=== PATIENT | male | born 1990 | race Caucasian/White ===

== ENCOUNTER 2022-05-18 04:51 | Inpatient (IN) | payer BC, SELFPAY ==
[2022-05-18] VITALS (7 sets, daily range): BP systolic 126–148; BP diastolic 74–105; PULSE 87–105; RESP 18–20; TEMP 36.4–37.3; O2SAT 94–98; BMI 40.9
--- NOTE | ~2022-05-18 | CT_ITS ---
EXAMINATION: CT abdomen pelvis w con DATE: 05/18/2022 07:33 INDICATION: Lower abdominal pain. TECHNIQUE: Computed tomography (CT) of the abdomen and pelvis was performed with 100 mL Omnipaque 350 intravenous contrast. Automated exposure control and iterative reconstruction technique were employe d. The dose-length product was 1617.54 mGy-cm. COMPARISON: None. FINDINGS: The visualized portions of the lung bases demonstrate mild atelectasis on the right. A 3 mm nodule in right lower lobe is likely benign. A calcified left lung nodule is consistent with old gra nulomatous disease. No pleural effusion. The heart size is normal. No pericardial effusion. There is mild elevation of right hemidiaphragm. The liver, gallbladder, spleen, pancreas, adrenal glands, and kidneys are normal. There is a left inguinal hernia containing fat. There are scattered diverticula i n the colon. There is fat stranding around a diverticulum of sigmoid colon with scattered foci of clemente e intraperitoneal gas throughout the abdomen. The appendix is normal. There are no dilated loops of b owel. There is an umbilical hernia containing fat. There are no pathologically enlarged lymph nodes. There is mild thoracolumbar spondylosis. IMPRESSION: 1. Perforated sigmoid diverticulitis. No abscess. Reviewed, dictated and finalized at location A. WORKER
[2022-05-18 05:38] LABS: Add Urine Microscopic? NO; Appearance Urine Clear (Clear); Bilirubin Urine Negative (Negative); Blood Urine Negative (Negative); Color Urine Yellow (Yellow); Glucose Urine UA Negative (Negative); Ketones Urine Negative (Negative); Leukocyte Esterase Ur Negative LEU/UL (Negative); Nitrate Urine Negative (Negative); Protein Urine Negative (Negative); pH Urine 6.5 (5.0-9.0)
[2022-05-18 05:38] LABS: Basophils Absolute Auto 0.1 K/mm3 (0.0-0.1); Basophils Percent Auto 0.5 % (0.2-1.2); Eosinophils Percent Auto 0.2 % (0-4.4); Hematocrit 43.8 % (42.0-52.0); Hemoglobin 15.2 g/dL (14.0-18.0); Immature Granulocyte Absolute 0.05 K/mm3 (0.00-0.031); Immature Granulocyte Percent A 0.3 % (0-0.5); Lymphocytes Absolute Auto 1.32 K/mm3 (0.9-3.2); Lymphocytes Percent Auto 7.8 % (18.3-44.2); Mean Corpuscular HGB Conc 34.7 g/dl (32-36); Mean Corpuscular Hemoglobin 28.7 pg (26-34); Mean Corpuscular Volume 82.8 fl (80-100); Mean Platelet Volume 9.3 fl (7.4-10.4); Monocytes Absolute Auto 1.1 K/mm3 (0.1-0.6); Monocytes Percent Auto 6.8 % (2.6-8.5); Neutrophils Absolute Auto 14.3 K/mm3 (1.3-6.7); Neutrophils Percent Auto 84.4 % (45.5-73.1); Platelet Count Result 291 k/mm3 (150-375); Red Blood Count 5.29 M/mm3 (4.6-6.20); Red Cell Distribution Width 13.6 % (11.5-14.5); White Blood Count 16.9 K/mm3 (4.5-10.0)
[2022-05-18 05:44] LABS: Bacteria Urine Trace /hpf; Mucus Urine Few /lpf; WBC Urine 0-3 /hpf
[2022-05-18 05:49] LABS: Alanine Aminotransferase 50 U/L (6-50); Albumin Level 4.5 g/dL (3.5-5.1); Alkaline Phosphatase 153 U/L (38-126); Anion Gap 10 mmol/L (8-16); Aspartate Amino Transferase 40 U/L (17-59); Bilirubin,Total 2.1 mg/dL (0.2-1.3); Blood Urea Nitrogen 19 mg/dL (9-20); Calcium 9.1 mg/dL (8.4-10.2); Carbon Dioxide 23 mmol/L (22-30); Chloride 106 mmol/L (98-107); Estimated CRCL calculation 174 ml/min; Estimated Glomerular Filt Rate > 60; Glucose 126 mg/dL (65-110); Lipase 52 U/L (23-300); Potassium 3.6 mmol/L (3.4-5.0); Sodium 139 mmol/L (137-145)
--- NOTE | 2022-05-18 07:07 | ED.ABDPAIN ---
HPI - Abdominal Pain General Chief Complaint: Abdominal Pain Stated Complaint: Abdominal cramping x 12 hours Time Seen by Provider: 05/18/22 07:04 Source: patient Mode of arrival: ambulatory Limitations: no limitations History of Present Illness HPI narrative: Patient is a 31 yo male with a hx of diverticulitis presenting to the ER for evaluation of lower abdominal pain that began around 12 hours ago. Patient reports aching pain in the lower abdomen without radiation to the upper abdomen or flank. He denies associated fever, chills, nausea or vomiting. He has been able to tolerate oral intake. Patient reports history of diverticulitis which was treated with IV and outpatient oral antibiotics that did clear. Patient had a follow-up colonoscopy that showed no evidence of cancerous process. Patient denies any known history of irritable bowel disease. Patient denies diarrhea, constipation, hematochezia. Related Data Allergies Allergy/AdvReac Type Severity Reaction Status Date / Time amoxicillin [From Augmentin] Allergy Unknown Verified 05/18/22 04:53 cefaclor [From Ceclor] Allergy Unknown Verified 05/18/22 04:54 clavulanic acid Allergy Unknown Verified 05/18/22 04:53 [From Augmentin] Review of Systems Review of Systems: CONSTITUTIONAL: Denies fever, chills, or sweats. EYES: Denies visual changes, redness, or discharge. ENT: Denies rhinorrhea, congestion, sore throat, or otalgia. CARDIOVASCULAR: Denies chest pain, palpitations, or edema. RESPIRATORY: Denies cough or dyspnea. GASTROINTESTINAL: Reports abd pain in the lower abdomen, denies nausea, vomiting, diarrhea or constipation GENITOURINARY: Denies dysuria or hematuria. SKIN: Denies rash or itching. MUSCULOSKELETAL: Denies back pain, joint pain, or myalgia. NEUROLOGIC: Denies headache, numbness, or weakness. [facility] Past Medical History Medical History (Updated 05/18/22 @ 16:23 by Deric Dunlap MD) Diverticulitis Obesity with body mass index (BMI) of 35.0 to 39.9 without comorbidity Surgical History Surgical History S/P hernia surgery Social History Social History Smokeless tobacco user: chewing tobacco Alcohol intake: never Substance use: never Exam Narrative: GENERAL: Awake, alert, conversant HEAD: Normocephalic, atraumatic. EYES: PERRLA and EOMI. ENT: Nares clear, no rhinorrhea or epistaxis. Mucous membranes moist. NECK: Supple. CHEST: No respiratory distress, breathing even and non labored HEART: Tachycardic rate, sinus rhythm ABDOMEN:Non distended, tender in the lower abdomen without rebound, rigidity or guarding, no flank pain bilaterally EXTREMITIES: Normal range of motion. No edema. SKIN: Warm, dry, no rash. NEURO:No focal deficits. Alert and oriented x3 Course Vital Signs Vital signs: Vital Signs Temperature 36.8 C 05/18/22 05:09 Pulse Rate 105 H 05/18/22 05:09 Respiratory Rate 20 05/18/22 05:09 Blood Pressure 138/83 05/18/22 05:09 Pulse Oximetry 98 05/18/22 05:09 Oxygen Delivery Room Air 05/18/22 05:09 Temperature 37.0 C 05/18/22 17:22 Pulse Rate 100 05/18/22 17:22 Respiratory Rate 20 05/18/22 17:22 Blood Pressure 140/80 05/18/22 17:22 Pulse Oximetry 97 05/18/22 17:22 Oxygen Delivery Room Air 05/18/22 05:09 MDM - Abdominal Pain MDM Narrative Medical decision making narrative: Patient is a 31-year-old male presenting for evaluation of lower abdominal pain. At the time of initial assessment, patient is tachycardic, afebrile, no hypotension. Overall, he is well-appearing. He does have lower abdominal pain on palpation without rebound, rigidity or guarding. Laboratory results are notable for leukocytosis, lactic and blood cultures will be added to patient's work-up. He was ordered IV fluids, antiemetic and pain medication. CT imaging is notable for perforated sigmoid
[2022-05-18 08:46] LABS: Influenza A QL RT-PCR Negative (Negative); Influenza B QL RT-PCR Negative (Negative); SARS-CoV-2 RNA PCR Negative
[2022-05-18] MEDS: SODIUM CHLORIDE 0.9% IV 1,000 ML 999 ML IV CONT ×4 (09:36→17:53)
[2022-05-18] MEDS: MORPHINE SULFATE (*CRX) 4 MG/ML INJ IV PUSH ×3 (09:40→20:38)
[2022-05-18] MEDS: ONDANSETRON INJ 4 MG/2 ML VIAL IV PUSH (09:40)
[2022-05-18] MEDS: HYDROmorphone HCL INJ (*CRX) 1 MG/ML SYR 0.5 MG IV PUSH (12:18)
[2022-05-18 14:42] LABS: Lactic Acid Reflex 2.4 mmol/L (0.7-2.0)
--- NOTE | 2022-05-18 15:12 | PC.NURSE ---
patient alert and oriented at this time. advised to immediately notify chief writer if pain becomes worse or notices fever/chills. patient verbalized understanding stating that the pain is the same as it has been and vitals taken.
--- NOTE | 2022-05-18 15:32 | PC.NURSE ---
general surgeon here to assess patient at this time
--- NOTE | 2022-05-18 16:13 | PM.IMHP ---
H&P: HPI History of Present Illness Date/Time: 05/18/22 16:00 Chief Complaint: Worsening lower abdominal pain Narrative: The patient is a 31 y/o obese White male with a history of diverticulitis presenting to the ER for evaluation of lower abdominal pain that began around 7:00 p.m. 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 Patient reports aching pain in the lower abdomen without radiation to the upper abdomen or flank.? He denies associated fever, chills, nausea or vomiting.? He has been able to tolerate oral intake.? Patient reports history of diverticulitis which was treated with IV and outpatient oral antibiotics that did clear.? His 1st episode was in 2018. Patient had a follow-up colonoscopy After that improved in 2018 which showed no evidence of cancerous process but apparently some evidence for diverticuli.? Patient denies any known history of irritable bowel disease.? Patient denies diarrhea, constipation, hematochezia. he has had 2 episodes earlier this year 1 very early in May and a 2nd 1 more in July or August. He has seen both at the primary and a surgeon in [facility] regarding this. The patient had a workup in the emergency [place] [id number]. The rest of his labs were pretty normal. He also had a CT scan of the abdomen and pelvis which showed significant inflammation of and around the sigmoid colon with small bubbles of free air mainly in that area but also scattered in the mid and left abdomen. He was not exhibiting peritoneal signs in the ER. I reviewed the problem with him and explained that in this situation usually would treat with IV antibiotics and follow him. Since he is from [place], [place] he would prefer to be transferred back up to [facility] in [place] and Dr. Riley has called and he has been accepted as a patient. However, they are awaiting a bed and he is on a waiting list. Therefore, I was asked to see him and follow him in our emergency room until we find out if he is going to go. If unable to go he will continue get treated here on inpatient basis when we have a bed available. Review of Systems Review of Systems: All systems reviewed & are unremarkable except as noted in HPI and below (HPI) Constitutional: Constitutional: Reports as per HPI, Denies chills and Denies fever(s) Eyes: Eyes: Reports no additional eye complaints ENT: Reports Normal hearing present and Denies dizziness Cardiovascular: Cardiovascular: Reports no additional cardiovascular complaints, Denies chest pain and Denies irregular heart rhythm Respiratory: Respiratory: Reports no additional respiratory complaints Gastrointestinal: Gastrointestinal: Denies bloating Comments: History of 3 previous episodes of diverticulitis. The most recent tube being May the and then subsequently August of this year. Prior to his August episode he had had a 2nd colonoscopy which revealed apparently sigmoid diverticuli as far as I can tell from his description. He has had no polyps. Previously in 2018 he had his 1st episode of diverticulitis and 1 or 2 months after that had a colonoscopy by a Dr. Hobbs in [place], [place] he states that she had actually talked to him about possible elective surgery to remove the most affected the segment of his sigmoid colon. He had avoided doing this for now because he needed to obtain disability or short-term disability insurance through his [employer] company and was working on that. Genitourinary: Genitourinary: Denies hematuria Musculoskeletal: Musculoskeletal: Denies back pain Integumentary/Breasts: Skin/Breast: Reports system reviewed and no additional complaints, except as docu Neurologic: Reports Normal hearing present, Denies Abnormal speech present, Denies confusion and Denies dizziness Psychiatric: Psychiatric: Reports no additional psychiatric complaints and Denies confusion Endocrine: Endocrine: Re
[2022-05-18 17:27] LABS: Reflex Lactic Acid Yes or No Add Lactic
--- NOTE | 2022-05-18 17:43 | PC.NURSE ---
called bed coordinator sushant at [facility], there may be a possible bed open up their pending discharges. pt will go to a bed here but not admitted, upstairs for [facility],.[facility] will contact us when bed available.
--- NOTE | 2022-05-18 20:40 | PC.NURSE ---
TRANSPORT: [id number] called [facility] for ALS transport to [facility] in [place], [place] (ROOM 4419 - [phone]). Long distance trip horticultural services supervisor approved at 193. Earliest ETA for an ALS EMS transport would be on 05/21/22 at 0900, [facility] PERMITTING. DX: perforated diverticulitis. IVL-PRN MEDICATION
[2022-05-18] MEDS: SODIUM CHLORIDE 0.9% IV 1,000 ML 100 ML IV CONT (21:31)
--- NOTE | 2022-05-18 21:32 | PC.NURSE ---
[facility] in [place] aware patient not transferring tonight d/t unavailable transport [phone]
--- NOTE | 2022-05-18 21:38 | ADMGEN ---
This patient, Gary James, was admitted to [address] [place] [address] Room 310-01. Patient/family oriented to hospital policies and general routines including ID bracelet, bed and alarms, visiting hours, pain management, procedures, bathroom and other care routines, personal items, smoking policy, room service/diet, and visiting hours. Information on how to activate the Rapid Response Team has been discussed. Patient/Family are encouraged to report perceived risks to care and to ask questions if they do not understand what they are told or what they should do.
[2022-05-18] MEDS: LACTATED RINGERS 1,000 ML 125 ML IV CONT (22:59)
[2022-05-19] VITALS (7 sets, daily range): BP systolic 115–128; BP diastolic 64–77; PULSE 71–86; RESP 16–20; TEMP 36.3–37.1; O2SAT 96–99
[2022-05-19] MEDS: MORPHINE SULFATE (*CRX) 4 MG/ML INJ IV PUSH (02:49)
--- NOTE | 2022-05-19 03:52 | PC.NURSE ---
Talked to [facility] about pending transfer to their facility. Facility has to give up bed due to patient not being able to be transported to [facility] until Tuesday because of ambulance availability, but he is placed back on the waiting list and will continue to be called for updates on him. If transport can be arranged earlier than Tuesday, then give a call back to the [facility] at [phone].
[2022-05-19 06:57] LABS: Basophils Percent Auto 0.4 % (0.2-1.2); Eosinophils Absolute Auto 0.1 K/mm3 (0-0.3); Eosinophils Percent Auto 0.8 % (0-4.4); Hematocrit 35.5 % (42.0-52.0); Hemoglobin 12.2 g/dL (14.0-18.0); Immature Granulocyte Absolute 0.06 K/mm3 (0.00-0.031); Immature Granulocyte Percent A 0.5 % (0-0.5); Lymphocytes Absolute Auto 1.82 K/mm3 (0.9-3.2); Lymphocytes Percent Auto 16.6 % (18.3-44.2); Mean Corpuscular HGB Conc 34.4 g/dl (32-36); Mean Corpuscular Hemoglobin 28.8 pg (26-34); Mean Corpuscular Volume 83.9 fl (80-100); Monocytes Absolute Auto 1.1 K/mm3 (0.1-0.6); Monocytes Percent Auto 9.9 % (2.6-8.5); Neutrophils Absolute Auto 7.9 K/mm3 (1.3-6.7); Neutrophils Percent Auto 71.8 % (45.5-73.1); Platelet Count Result 204 k/mm3 (150-375); Red Blood Count 4.23 M/mm3 (4.6-6.20); Red Cell Distribution Width 14.2 % (11.5-14.5)
[2022-05-19 07:03] LABS: Lactic Acid Reflex 0.8 mmol/L (0.7-2.0)
[2022-05-19 07:12] LABS: Alanine Aminotransferase 32 U/L (6-50); Albumin Level 3.4 g/dL (3.5-5.1); Alkaline Phosphatase 103 U/L (38-126); Anion Gap 4 mmol/L (8-16); Aspartate Amino Transferase 19 U/L (17-59); Bilirubin,Total 4.7 mg/dL (0.2-1.3); Blood Urea Nitrogen 13 mg/dL (9-20); Calcium 8.2 mg/dL (8.4-10.2); Carbon Dioxide 28 mmol/L (22-30); Chloride 105 mmol/L (98-107); Estimated CRCL calculation 192 ml/min; Estimated Glomerular Filt Rate > 60; Glucose 93 mg/dL (65-110); Potassium 3.5 mmol/L (3.4-5.0); Sodium 137 mmol/L (137-145)
[2022-05-19] MEDS: LACTATED RINGERS 1,000 ML 125 ML IV CONT ×2 (08:18→09:30)
[2022-05-19] MEDS: HYDROcodone/acetaminophen (*CRX) 5-325 MG TABLET 1 TAB PO ×2 (09:28→23:15)
[2022-05-19] MEDS: buPROPion HCL SR (12 HR) 150 MG TAB PO (09:28)
[2022-05-19] MEDS: ENOXAPARIN 40 MG/0.4 ML SYRINGE SUB-Q (09:29)
[2022-05-19] MEDS: CHLORTHALIDONE 25 MG TABLET PO (09:29)
--- NOTE | 2022-05-19 10:47 | PM.PNGS ---
Progress Note: A&P Assessment and Plan (1) Perforation of sigmoid colon due to diverticulitis: Code(s): K57.20 - Diverticulitis of large intestine with perforation and abscess without bleeding Status: Acute Assessment and Plan: Patient seemed to be making good progress now 24 hours after admission. He is on IV Zosyn and his white count has come down to 11,000. His pain is fairly well controlled. We will try switching to oral pain medications today and allowing him to have initially clear liquids. If he does well with that up to full liquids until breakfast tomorrow. I have encouraged him to begin being up walking more than in bed. It appears that he is making recovery without signs of continuing or worsening peritonitis. Therefore, will begin to plan to finish IV antibiotics and convert to oral antibiotics probably choosing Levaquin and Flagyl since he has a previous possible reaction to amoxicillin/Augmentin. He is from [place], [place]. He has seen a general surgeon there that may be willing to follow him up and he is planning to go back home if he is released. ( Her name is Dr. Michelle Hobbs and the phone number there is [phone] 1 their main exchange number they may call my office or the floor to give time for a follow-up appointment either on Tuesday ). My partners will be rounding for me from this point on. We initially planned to have him transferred to [facility] in [place] to Dr. Omer. Initially they did not have bed availability. He was on a weight less but then, However, our ambulance services here were not able to transport the patient that far until Tuesday05/21/2022. (This was per our ER physician late last evening. ) Case management is working on possible transfer, but if patient continues to improve he may be able to follow-up as an outpatient with a surgeon that already knows him in [place] (his home town) right about the time he is finishing his course of oral antibiotics. (2) Obesity with body mass index (BMI) of 35.0 to 39.9 without comorbidity: Code(s): E66.9 - Obesity, unspecified Status: Acute Assessment and Plan: I have had the dietitian talk to the patient about initially a low-fiber diet then switching to a high-fiber diet. On discharge will encourage him to also stick to a low-fat diet and try to lose some weight. Subjective Subjective Date/Time Seen: 05/19/22 08:47 Patient reports: no new complaints, feels better, flatus and no bowel movement Interval history: Patient laying in bed when I entered the room. He states his pain now is a 4/10 whereas when he came to the hospital was 8/10. He received some morphine last about 5:00 a.m. this morning. He has not had a bowel movement yet. He is not nauseated. Pain is mainly centered just to the left of midline below the umbilicus now. If no palpation he does not have pain through the rest of the abdomen. Nurse reports vital signs stable overnight. Patient reports he slept pretty well last night. Review of Systems Review of Systems: All systems reviewed & are unremarkable except as noted in HPI and below Constitutional: Constitutional: Reports as per HPI, Denies chills and Denies fever(s) Cardiovascular: Cardiovascular: Denies chest pain and Denies dyspnea Respiratory: Respiratory: Reports no additional respiratory complaints and Denies dyspnea Gastrointestinal: Gastrointestinal: Reports as per HPI and Denies bloating Musculoskeletal: Musculoskeletal: Reports no additional musculoskeletal complaints Neurologic: Denies memory loss Psychiatric: Psychiatric: Denies anxiety and Denies memory loss Exam Const: General: cooperative, comfortable, alert and awake Orientation/consciousness: patient oriented x3 HENMT: Head: normal to inspection Mouth: Yes moist mucous membranes Eyes: Sclera: sclerae normal Pupils: Equal, round and reactive pupils present Neck: Neck: normal visual inspection and no J
[2022-05-19] MEDS: ONDANSETRON INJ 4 MG/2 ML VIAL IV PUSH (19:02)
[2022-05-20 04:00] VITALS: BP 118/63; PULSE 78; RESP 20; TEMP 36.3; O2SAT 97
[2022-05-20] MEDS: ONDANSETRON INJ 4 MG/2 ML VIAL IV PUSH (04:07)
[2022-05-20 06:34] LABS: Basophils Percent Auto 0.3 % (0.2-1.2); Eosinophils Absolute Auto 0.1 K/mm3 (0-0.3); Hematocrit 37.2 % (42.0-52.0); Hemoglobin 12.6 g/dL (14.0-18.0); Immature Granulocyte Absolute 0.05 K/mm3 (0.00-0.031); Immature Granulocyte Percent A 0.5 % (0-0.5); Lymphocytes Percent Auto 13.6 % (18.3-44.2); Mean Corpuscular HGB Conc 33.9 g/dl (32-36); Mean Corpuscular Volume 85.7 fl (80-100); Mean Platelet Volume 9.3 fl (7.4-10.4); Monocytes Absolute Auto 1.1 K/mm3 (0.1-0.6); Monocytes Percent Auto 10.8 % (2.6-8.5); Neutrophils Absolute Auto 7.6 K/mm3 (1.3-6.7); Neutrophils Percent Auto 73.8 % (45.5-73.1); Platelet Count Result 222 k/mm3 (150-375); Red Blood Count 4.34 M/mm3 (4.6-6.20); White Blood Count 10.3 K/mm3 (4.5-10.0)
[2022-05-20 08:00] VITALS: BP 101/54; PULSE 108; RESP 20; TEMP 36.1; O2SAT 95
[2022-05-20] MEDS: CHLORTHALIDONE 25 MG TABLET PO (08:41)
[2022-05-20] MEDS: buPROPion HCL SR (12 HR) 150 MG TAB PO (08:41)
[2022-05-20] MEDS: ENOXAPARIN 40 MG/0.4 ML SYRINGE SUB-Q (08:41)
[2022-05-20] MEDS: ACETAMINOPHEN 500 MG TABLET 1000 MG PO (08:45)
--- NOTE | 2022-05-20 09:30 | PM.PNGS ---
Progress Note: A&P Assessment and Plan (1) Perforation of sigmoid colon due to diverticulitis: Code(s): K57.20 - Diverticulitis of large intestine with perforation and abscess without bleeding Status: Acute Assessment and Plan: Continue IV antibiotics--patient on Zosyn currently although he has augmentin listed as an allergy. No signs of allergic reaction to Zosyn yet--continue to monitor. Continue Full liquids today until nausea improves Stimulate bowels with Milk of Mag, Start scheduled MiraLax tomorrow. (2) Hyperbilirubinemia: Code(s): E80.6 - Other disorders of bilirubin metabolism Status: Acute Assessment and Plan: T Bili 4.7 today. Will check indirect and direct. Possibly get RUQ u/s if direct significantly elevated. Subjective Subjective Date/Time Seen: 05/20/22 09:30 Interval history: Pain improving. Having some nausea and not much appetite. No BM since admission. No fevers. Pain only in lower abdomen. No RUQ tenderness, no hx of liver problems. Exam GI: Inspection: non-distended GI Palp: Yes Soft to palpation, Yes Tenderness to palpation present (GI) (minimal LLQ) and No Guarding due to palpation present (GI) Objective Data Vital Signs Vital Signs: Vital Signs - 24 hr 05/19/22 12:00 05/19/22 16:00 05/19/22 20:00 Temperature 36.3 C L 37.1 C 36.4 C Pulse Rate 83 73 86 Respiratory Rate 18 18 20 Blood Pressure 126/73 119/74 128/64 Pulse Oximetry 96 98 98 Oxygen Delivery 05/19/22 20:00 05/19/22 23:56 05/20/22 04:00 Temperature 36.7 C 36.3 C L Pulse Rate 84 78 Respiratory Rate 18 20 Blood Pressure 125/66 118/63 Pulse Oximetry 96 97 Oxygen Delivery Room Air 05/20/22 08:00 Temperature 36.1 C L Pulse Rate 108 H Respiratory Rate 20 Blood Pressure 101/54 L Pulse Oximetry 95 Oxygen Delivery Intake/Output Intake/Output: Intake & Output 05/17/22 05/18/22 05/19/22 05/20/22 23:59 23:59 23:59 23:59 Intake Total 4022 4720 200 Balance 4024 4720 200 Meds/Results Medications: Active Medications Generic Name Dose Route Start Last Admin Trade Name Freq PRN Reason Stop Dose Admin Acetaminophen 1,000 mg 05/19/22 16:59 05/20/22 08:45 Acetaminophen 500 Mg Tablet PO 1,000 mg Q6H PRN Administration Mild Pain (1-3) or Fever Hydrocodone Bitart/Acetaminophen 1 tab 05/19/22 08:45 05/19/22 23:15 Hydrocodone/Acetaminophen (*Crx) 5-325 Mg Tablet PO 1 tab Q6H PRN Administration Pain Rated 4-6 Hydrocodone Bitart/Acetaminophen 1 tab 05/19/22 08:46 Hydrocodone/Acetaminophen (*Crx) 7.5-325 Mg Tablet PO Q6H PRN Pain Rated 7-10 Bupropion HCl 150 mg 05/19/22 09:00 05/20/22 08:41 Bupropion Hcl Sr (12 Hr) 150 Mg Tab PO 150 mg DAILY SPARKLE Administration Chlorthalidone 25 mg 05/19/22 09:00 05/20/22 08:41 Chlorthalidone 25 Mg Tablet PO 25 mg DAILY SPARKLE Administration Enoxaparin Sodium 40 mg 05/19/22 09:00 05/20/22 08:41 Enoxaparin 40 Mg/0.4 Ml Syringe SUB-Q 40 mg QAM SPARKLE Administration Piperacillin/Tazobactam/Dextrose 3.375 gm in 50 mls @ 100 mls/hr 05/18/22 22:00 05/20/22 04:38 Zosyn 3.375 Gm/D5w 50ml Pm IVPB Infused Q6H SPARKLE Infusion Morphine Sulfate 2 mg 05/18/22 22:49 Morphine Sulfate (*Crx) 2 Mg/Ml Inj IV PUSH Q3H PRN PAIN 4-6 IF NPO Naloxone HCl 0.1 mg 05/18/22 22:49 Naloxone Hcl 0.4 Mg/Ml Vial IV PUSH Q2M PRN Opiate Reversal Ondansetron HCl 4 mg 05/18/22 09:04 05/20/22 04:07 Ondansetron Inj 4 Mg/2 Ml Vial IV PUSH 4 mg Q6HR PRN Administration Nausea And Vomiting Radiology Results: ITS Impressions Abdomen/Pelvis CT 05/18/22 07:36 IMPRESSION: 1. Perforated sigmoid diverticulitis. No abscess. Labs Labs: Laboratory Results - last 24 hr 05/20/22 05:47 WBC 10.3 H RBC 4.34 L Hgb 12.6 L Hct 37.2 L MCV 85.7 MCH 29.0 MCHC 33.9 RDW 14.0 Plt Count 222 MPV 9.3 Immature Gran
[2022-05-20 10:14] LABS: Bilirubin Indirect 2.7 mg/dL (0-1.1)
[2022-05-20] MEDS: MAGNESIUM HYDROXIDE SUSP 30 ML UDC PO (11:33)
[2022-05-20] MEDS: polyethylene glycoL 3350 17 GM POWD.PACK PO (11:33)
[2022-05-20 16:00] VITALS: BP 101/55; PULSE 75; RESP 20; TEMP 35.9; O2SAT 100
[2022-05-20 20:00] VITALS: BP 104/76; PULSE 80; RESP 18; TEMP 37; O2SAT 96
[2022-05-21] VITALS: BP 108/82; PULSE 78; RESP 16; TEMP 37.2; O2SAT 97
[2022-05-21 04:00] VITALS: BP 125/72; PULSE 66; RESP 18; TEMP 36.9; O2SAT 99
[2022-05-21 08:00] VITALS: BP 126/77; PULSE 69; RESP 20; TEMP 36.1; O2SAT 98
[2022-05-21 08:08] LABS: Mean Platelet Volume 9.3 fl (7.4-10.4); Platelet Count Result 279 k/mm3 (150-375)
[2022-05-21 08:21] LABS: Alanine Aminotransferase 26 U/L (6-50); Albumin Level 3.7 g/dL (3.5-5.1); Alkaline Phosphatase 139 U/L (38-126); Aspartate Amino Transferase 20 U/L (17-59); Bilirubin,Total 2.1 mg/dL (0.2-1.3)
[2022-05-21] MEDS: buPROPion HCL SR (12 HR) 150 MG TAB PO (08:51)
[2022-05-21] MEDS: CHLORTHALIDONE 25 MG TABLET PO (08:51)
[2022-05-21] MEDS: ENOXAPARIN 40 MG/0.4 ML SYRINGE SUB-Q (08:52)
--- NOTE | 2022-05-21 10:07 | PM.DS ---
DS: Admitting Diagnosis Discharge Date 05/21/2022 Admitting Diagnosis perforated sigmoid diverticulitis without abscess or bleeding DS: Discharge Diagnosis Discharge Diagnosis (1) Perforation of sigmoid colon due to diverticulitis: Code(s): K57.20 - Diverticulitis of large intestine with perforation and abscess without bleeding Status: Acute Assessment and Plan: advanced to low-fiber diet. Pain resolved. Will discharge on 10 days of Levaquin and Flagyl. (2) Obesity with body mass index (BMI) of 35.0 to 39.9 without comorbidity: Code(s): E66.9 - Obesity, unspecified Status: Acute (3) Hyperbilirubinemia: Code(s): E80.6 - Other disorders of bilirubin metabolism Status: Acute Assessment and Plan: direct bilirubin was normal, likely Gilbert's syndrome DS: Summary Hospital Course Reason for hospitalization: Perforated sigmoid diverticulitis Hospital Course: this is a 31-year-old man who presented to the emergency department on 05/18/2022 with abdominal pain that started 1 day prior. He has a prior history diverticulitis episodes over the past 4 years, but this severe. His white blood count was 16.9 but he was hemodynamically stable. CT abdomen and pelvis with contrast showed fat stranding around a diverticulum of the sigmoid colon with scattered foci of free intraperitoneal gas. No evidence of abscess. The patient was started on IV Zosyn and was kept NPO and admitted to the hospital. On 05/19 his white blood count came down to 11,000 and his pain was improving. He was started on clear liquid diet. On 05/20 he was still complaining of some nausea and mild pain. White blood count was continuing to improve. He was advanced to a full liquid diet and was given milk of magnesia to help bowels move. He had a bowel movement on 05/20 and his pain was essentially resolved. On 05/21 he was continuing to have minimal to no pain. He was advanced to a low-fiber diet. He did have a slightly elevated total bilirubin level, but direct bilirubin was 0. He had no pain in the right upper quadrant and no abnormal findings on the CT scan to suggest a biliary obstruction. After tolerating breakfast and lunch on a low-fiber diet, patient was discharged on 05/21. Status at Discharge Functional status at discharge: independent ambulation Overall status at discharge: patient is progressing back to baseline Time Spent with Patient Time attestation: Total time spent providing and/or coordinating discharge services: Time spent: Less than 30 minutes Exam Const: General: no acute distress and alert Orientation/consciousness: patient oriented x3 Resp: Effort & Inspection: normal respiratory effort Auscultation: clear to auscultation bilaterally Cardio: Rate: regular rate Rhythm: regular rhythm Heart sounds: S1 normal heart sound present and S2 normal heart sound present GI: Inspection: non-distended GI Palp: Yes Soft to palpation, No Tenderness to palpation present (GI), No Guarding due to palpation present (GI), No Palpable mass present and No Rebound tenderness present Percussion: Yes normal to percussion Auscultation: normal bowel sounds DS: Data Data Completed and Pending Labs on day of discharge: Labs from last 24 hours 05/21/22 05/21/22 05/21/22 07:24 07:24 07:24 WBC Pending RBC Pending Hgb Pending Hct Pending MCV Pending MCH Pending MCHC Pending RDW Pending Plt Count Pending 279 MPV Pending 9.3 Total Bilirubin 2.1 H Direct Bilirubin 0.0 Indirect Bilirubin AST 20 ALT 26 Alkaline Phosphatase 139 H Total Protein 8.0 Albumin 3.7 05/20/22 05:44 WBC RBC Hgb Hct MCV MCH MCHC RDW Plt Count MPV Total Bilirubin Direct Bilirubin 0.0 Indirect Bilirubin 2.7 H AST ALT Alkaline Phosphatase Total Protein Albumin Preliminary micro results at discharge 05/18/22 08:57 Blood Culture -
[2022-05-21 10:37] LABS: Hematocrit 39.3 % (42.0-52.0); Hemoglobin 13.3 g/dL (14.0-18.0); Mean Corpuscular HGB Conc 33.8 g/dl (32-36); Mean Corpuscular Hemoglobin 29.1 pg (26-34); Mean Platelet Volume 9.6 fl (7.4-10.4); Platelet Count Result 281 k/mm3 (150-375); Red Blood Count 4.57 M/mm3 (4.6-6.20); Red Cell Distribution Width 14.2 % (11.5-14.5); White Blood Count 8.3 K/mm3 (4.5-10.0)
[2022-05-21 12:00] VITALS: BP 118/64; PULSE 65; RESP 20; TEMP 36.1; O2SAT 96
== END 2022-05-21 12:54 | disposition home or self-care (01) | DRG 244 ==
LOC: ANHED 18:28 → ANH3MEDSUR 21:01
PROVIDERS: Emergency Medicine; Admitting Provider Surgery; Emergency Provider Emergency Medicine; Visit Provider Surgery
DX: K57.20 Diverticulitis of large intestine with perforation and abscess without bleeding (principal); Z68.41 Body mass index [BMI] 40.0-44.9, adult; E66.9 Obesity, unspecified; Z88.1 Allergy status to other antibiotic agents; Z20.822 Contact with and (suspected) exposure to COVID-19
CPT/HCPCS: 36415; 74177; 80053; 80076; 81003; 82248; 83605; 83690; 83735; 85025; 85027; 85049; 87040; 87636; 96361; 96365; 96366; 96372; 96375; 96376; 99285; A9270; G0378; G0379; J0131; J1170; J1650; J2270; J2405; J2543; J7030; J7120; Q9967